=== PATIENT | male | born 1940 | race Caucasian/White ===

== ENCOUNTER 2019-05-30 13:40 | Emergency (ER) | payer MEDICARE, OTHER ==
[2019-05-30] MEDS ORDERED: ONDANSETRON ODT 4 MG TABLET TL STA (16:05)
[2019-05-30] MEDS ORDERED: LORazepam 0.5 MG TABLET PO STA (16:05)
[2019-05-30 16:06] VITALS: BP 186/86
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
[2019-05-30 16:36] LABS: BASOPHILS # (AUTO) 0.1 10^3/uL (0.0-0.1); BASOPHILS % (AUTO) 0.8 %; EOSINOPHILS # (AUTO) 0.2 10^3/uL (0.0-0.7); EOSINOPHILS % (AUTO) 2.9 %; HGB - HEMOGLOBIN 15.6 g/dL (14.0-18.0); LYMPHOCYTES # (AUTO) 2.2 10^3/uL (1.5-3.5); LYMPHOCYTES % (AUTO) 33.3 %; MEAN CORPUSCULAR HEMOGLOBIN 29.2 pg (27.0-31.0); MEAN CORPUSCULAR HGB CONC 33.7 g/dL (32.0-36.0); MEAN CORPUSCULAR VOLUME 86.7 fL (80.0-94.0); MEAN PLATELET VOLUME 8.9 fL (7.4-11.4); MONOCYTES # (AUTO) 0.5 10^3/uL (0.0-1.0); MONOCYTES % (AUTO) 8.2 %; NEUTROPHILS # (AUTO) 3.6 10^3/uL (1.5-6.6); NEUTROPHILS % (AUTO) 54.3 %; PLT - PLATELET COUNT 236 10^3/uL (130-450); RED BLOOD COUNT 5.34 10^6/uL (4.70-6.10); RED CELL DISTRIBUTION WIDTH 13.6 % (12.0-15.0); WHITE BLOOD COUNT 6.6 x10^3/uL (4.8-10.8)
[2019-05-30 16:42] LABS: PT - PROTHROMBIN TIME 11.5 secs (9.9-12.6)
--- NOTE | 2019-05-30 16:58 | CT Report ---
Reason: dysequilibrium Procedure Date: 05/30/2019 Accession Number: [id number] / [id number] Procedure: CT - HEAD WO CPT Code: FULL RESULT: EXAM: CT HEAD EXAM DATE: 05/30/2019 04:24 PM. CLINICAL HISTORY: Dysequilibrium. COMPARISON: None. TECHNIQUE: Multiaxial CT images were obtained from the foramen magnum to the vertex. Reformats: Sagittal and coronal. IV contrast: None. In accordance with CT protocol optimization, one or more of the following dose reduction techniques were utilized for this exam: automated exposure control, adjustment of mA and/or KV based on patient size, or use of iterative reconstructive technique. FINDINGS: Parenchyma: No intraparenchymal hemorrhage. No evidence of mass, midline shift, or CT findings of acute infarction. Baker-white differentiation is distinct. Moderate chronic microangiopathic white matter changes are evident. Extraaxial Spaces: Normal for age. No subdural or epidural collections identified. Ventricles: The ventricles and cortical sulci are prominent, consistent with age-related tissue loss. Sinuses and orbits: Imaged paranasal sinuses, orbits, and mastoids show no significant abnormality. Bones: No evidence of fracture or calvarial defect. Other: None. IMPRESSION: Generalized age-related cortical atrophic changes without evidence of acute intracranial abnormality. RAD[facility]
[2019-05-30 17:12] LABS: ALBUMIN 4.1 g/dL (3.2-5.5); ALBUMIN/GLOBULIN RATIO 1.3 (1.0-2.2); BILIRUBIN,TOTAL 0.7 mg/dL (0.2-1.0); CALCIUM 9.5 mg/dL (8.5-10.3); CREATININE 0.8 mg/dL (0.6-1.2); TOTAL PROTEIN 7.2 g/dL (6.7-8.2)
== END 2019-05-30 17:15 | disposition home or self-care (01) ==
LOC: ED 13:40
DX: R42 Dizziness and giddiness (principal); H55.09 Other forms of nystagmus; R29.810 Facial weakness; I10 Essential (primary) hypertension; Z87.891 Personal history of nicotine dependence
CPT/HCPCS: 36415; 70450; 80053; 83690; 85025; 85610; 99284; A9270; Q0162

== ENCOUNTER 2019-07-16 10:50 | Outpatient (CLI) | payer MEDICARE, OTHER ==
--- NOTE | 2019-07-16 14:46 | XRAY Report ---
Reason: ORTHOPNEA, R06.01 Procedure Date: 07/16/2019 Accession Number: [id number] / [id number] Procedure: XRS - Chest 2 View X-Ray CPT Code: 52114 Final Report FULL RESULT: EXAM: CHEST RADIOGRAPHY EXAM DATE: 07/16/2019 10:58 AM. CLINICAL HISTORY: Orthopnea. COMPARISON: None. TECHNIQUE: 2 views. FINDINGS: Lungs/Pleura: No focal opacities evident. No pleural effusion. No pneumothorax. Normal volumes. Mediastinum: Heart and mediastinal contours are unremarkable. Other: None. IMPRESSION: Normal 2-view chest radiography. RAD[facility]
[2019-07-16 17:33] LABS: BASOPHILS # (AUTO) 0.1 10^3/uL (0.0-0.1); BASOPHILS % (AUTO) 1.1 %; EOSINOPHILS # (AUTO) 0.1 10^3/uL (0.0-0.7); HGB - HEMOGLOBIN 15.2 g/dL (14.0-18.0); LYMPHOCYTES # (AUTO) 2.2 10^3/uL (1.5-3.5); LYMPHOCYTES % (AUTO) 31.6 %; MEAN CORPUSCULAR HEMOGLOBIN 29.3 pg (27.0-31.0); MEAN CORPUSCULAR VOLUME 88.8 fL (80.0-94.0); MEAN PLATELET VOLUME 10.2 fL (7.4-11.4); MONOCYTES # (AUTO) 0.5 10^3/uL (0.0-1.0); MONOCYTES % (AUTO) 7.6 %; NEUTROPHILS % (AUTO) 57.4 %; PLT - PLATELET COUNT 301 10^3/uL (130-450); RED BLOOD COUNT 5.19 10^6/uL (4.70-6.10); RED CELL DISTRIBUTION WIDTH 13.8 % (12.0-15.0)
[2019-07-16 17:50] LABS: ALBUMIN 4.3 g/dL (3.2-5.5); ALBUMIN/GLOBULIN RATIO 1.4 (1.0-2.2); BILIRUBIN,TOTAL 0.7 mg/dL (0.2-1.0); CALCIUM 9.1 mg/dL (8.5-10.3); CREATININE 0.9 mg/dL (0.6-1.2); TOTAL PROTEIN 7.4 g/dL (6.7-8.2)
== END 2019-07-16 10:51 | disposition home or self-care (01) ==
LOC: DI.S 10:50
PROVIDERS: ATTEND Internal Medicine
DX: R06.01 Orthopnea (principal)
CPT/HCPCS: 36415; 71046; 80053; 84443; 85025

== ENCOUNTER 2019-10-21 16:03 | Emergency (ER) | payer MEDICARE, OTHER ==
[2019-10-21 16:41] LABS: BASOPHILS # (AUTO) 0.1 10^3/uL (0.0-0.1); BASOPHILS % (AUTO) 0.8 %; EOSINOPHILS # (AUTO) 0.2 10^3/uL (0.0-0.7); EOSINOPHILS % (AUTO) 2.2 %; HGB - HEMOGLOBIN 15.1 g/dL (14.0-18.0); LYMPHOCYTES # (AUTO) 2.2 10^3/uL (1.5-3.5); LYMPHOCYTES % (AUTO) 22.2 %; MEAN CORPUSCULAR HEMOGLOBIN 29.5 pg (27.0-31.0); MEAN CORPUSCULAR HGB CONC 33.8 g/dL (32.0-36.0); MEAN CORPUSCULAR VOLUME 87.5 fL (80.0-94.0); MEAN PLATELET VOLUME 8.7 fL (7.4-11.4); MONOCYTES # (AUTO) 0.7 10^3/uL (0.0-1.0); MONOCYTES % (AUTO) 6.6 %; NEUTROPHILS # (AUTO) 6.8 10^3/uL (1.5-6.6); NEUTROPHILS % (AUTO) 67.7 %; PLT - PLATELET COUNT 252 10^3/uL (130-450); RED BLOOD COUNT 5.11 10^6/uL (4.70-6.10); RED CELL DISTRIBUTION WIDTH 13.6 % (12.0-15.0); WHITE BLOOD COUNT 10.1 x10^3/uL (4.8-10.8)
[2019-10-21 16:54] LABS: ALBUMIN 4.1 g/dL (3.2-5.5); ALBUMIN/GLOBULIN RATIO 1.3 (1.0-2.2); BILIRUBIN,TOTAL 0.4 mg/dL (0.2-1.0); CALCIUM 9.3 mg/dL (8.5-10.3); CREATININE 1.1 mg/dL (0.6-1.2); TOTAL PROTEIN 7.3 g/dL (6.7-8.2)
[2019-10-21] MEDS ORDERED: IOVERSOL 320 100 ML VIAL IVP ONE ×2 (18:54→19:17)
--- NOTE | 2019-10-21 18:56 | ED Physician Documentation ---
PD HPI ABD PAIN - Stated complaint Stated Complaint: ABD PX, NAUSEA - Chief complaint Chief Complaint: Abd Pain - History obtained from History obtained from: Patient, Family - History of Present Illness Timing - onset: How many weeks ago (11) Timing - duration: Weeks Timing - details: Gradual onset, Waxing and waning Pain level max: 7 Pain level now: 4 Quality: Aching, Pain Location: Other (down the midline of his abdomen along his surgical scar) Radiation: No: Chest, , Lower back, Left flank, Left shoulder, Right flank, Right shoulder, Upper back Improved by: Other (nothing) Worsened by: Other (nothing) Associated symptoms: Nausea, Diarrhea (intermittent). No: Fever, Vomiting, Hematemesis, Constipation, Melena, Hematochezia, Dysuria, Hematuria, Chest pain Recently seen: Not recently seen - Additional information Additional information: Patient states that he has had diverticulitis in the past. He states that a year ago he had surgery for this down at [facility] in [place]. He states has had abdominal pain for the past week, it is along the midline of his abdomen al garrick his scar. Review of Systems Constitutional: denies: Fever, Chills Cardiac: denies: Chest pain / pressure Respiratory: denies: Cough GI: denies: Hematemesis, Bloody / black stool : denies: Dysuria Skin: denies: Rash Musculoskeletal: denies: Neck pain, Back pain Neurologic: denies: Focal weakness, Numbness, Headache PD PAST MEDICAL HISTORY - Past Medical History Cardiovascular: Hypertension, High cholesterol Respiratory: Asthma Psych: None - Past Surgical History General: Cholecystectomy, Other - Present Medications Home Medications: Ambulatory Orders Medication Instructions Recorded Confirmed LORazepam [Ativan] 0.5 mg PO Q6H PRN #5 tablet 05/30/19 Ondansetron Odt [Zofran] 4 mg TL Q6H PRN #10 tablet 05/30/19 Esomeprazole Magnesium [Nexium] 20 mg PO DAILY #30 capsule. 10/21/19 - Allergies Allergies/Adverse Reactions: Allergies Allergy/AdvReac Type Severity Reaction Status Date / Time No Known Drug Allergies Allergy Verified 10/21/19 16:16 - Social History Does the pt smoke?: No Smoking Status: Former smoker Does the pt drink ETOH?: No Does the pt have substance abuse?: No PD ED PE NORMAL - Vitals Vital signs reviewed: Yes - General General: Alert and oriented X 3, No acute distress - HEENT HEENT: Moist mucous membranes - Neck Neck: Supple, no meningeal sign - Cardiac Cardiac: RRR, Strong equal pulses - Respiratory Respiratory: No respiratory distress, Clear bilaterally - Abdomen Abdomen: Normal bowel sounds, Soft, Non tender, Non distended - Derm Derm: Warm and dry - Extremities Extremities: No edema - Neuro Neuro: Alert and oriented X 3 - Psych Psych: Normal mood, Normal affect Results - Vitals Vitals: Vital Signs - 24 hr 10/21/19 10/21/19 16:16 19:50 Temperature 36.6 C Heart Rate 56 L 54 L Respiratory 14 14 Rate Blood Pressure 130/80 191/84 H O2 Saturation 97 98 Oxygen O2 Source Room air - Labs Labs: Laboratory Tests 10/21/19 10/21/19 10/21/19 16:36 16:36 20:25 WBC 10.1 RBC 5.11 Hgb 15.1 Hct 44.7 MCV 87.5 MCH 29.5 MCHC 33.8 RDW 13.6 Plt Count 252 MPV 8.7 Neut # (Auto) 6.8 H Lymph # (Auto) 2.2 [place] # (Auto) 0.7 Eos # (Auto) 0.2 Baso # (Auto) 0.1 Absolute Nucleated RBC 0.00 Nucleated RBC % 0.0 Sodium 139 Potassium 4.6 Chloride 102 Carbon Dioxide 26 Anion Gap 11.0 BUN 29 H Creatinine 1.1 Estimated GFR (MDRD) 65 L Glucose 109 H Calcium 9.3 Total Bilirubin 0.4 AST 20 ALT 19 Alkaline Phosphatase 66 Total Protein 7.3 Albumin 4.1 Globulin 3.2 Albumin/Globulin Ratio 1.3 Lipase 36 Urine Color YELLOW Urine Clarity CLEAR Urine pH 7.0 Ur Specific Julian 1.010 Urine Protein NEGATIVE Urine Glucose (UA) NEGATIVE Urine Ketones NEGATIVE Urine Occult Blood TRACE-INTA Urine Nitrite NEGATIVE Urine Bilirubin NEGATIVE Urine Urobilinogen 0.2 (NORMAL) Ur Leukocyte Esterase NEGATIVE Ur Microscopic Review NOT INDICATED Urine Culture Comments NOT INDICATED - Rads (name of study) CT abdomen pelvis Radiology: Prelim report reviewed, EMP read contemporaneously, See rad report (1. Apparent wall thickening with hyperemia of the proximal duodenum could reflect nonspecific duodenitis. Correlation with patient's symptoms recommend it. Endoscopy could be performed for further evaluation. 2. Otherwise no other acute abnormality seen in the abdomen or pelvis. Normal caliber bowel loops. Normal appendix. 3. Sigmoid colonic diverticulosis without evidence for acute Diverticulitis) PD MEDICAL DECISION MAKING - ED course Complexity details: reviewed results, re-evaluated patient, considered differential, d/w patient, d/w family ED course: Patient with what appears to be duodenitis. Will place on a PPI for home. We will have him follow-up with his doctor for likely endoscopy referral with biopsy. Tolerating p.o. without difficulty here. Given IV Protonix. IV fluids given as well. No significant pain in the emergency department. Patient counseled regarding signs and symptoms for which I believe and urgent re- evaluation would be necessary. Patient with good understanding of and agreement to plan and is comfortable going home at this time This document was made in part using voice recognition software. While efforts are made to proofread this document, sound alike and grammatical errors may occur. Departure - Departure Disposition: 01 Home, Self Care Clinical Impression: Duodenitis Condition: Good Instructions: Duodenitis Follow-Up: Haresh Moses MD [Primary Care Provider] - Within 1 week Prescriptions: Esomeprazole Magnesium [Nexium] 20 mg PO DAILY #30 capsule. Comments: Follow-up with your doctor for further care. They should test you for H. pylori. They may also want to schedule an endoscopy where they can perform a biopsy of this site. Discharge Date/Time: 10/21/19 20:37
[2019-10-21] MEDS ORDERED: SODIUM CHLORIDE 0.9% 1,000 ML IV ONE (19:25)
--- NOTE | 2019-10-21 19:33 | CT Report ---
Reason: abd pain, diffuse Procedure Date: 10/21/2019 Accession Number: [id number] / [id number] Procedure: CT - Abdomen/Pelvis W CPT Code: Final Report FULL RESULT: EXAM: CT ABDOMEN AND PELVIS EXAM DATE: 10/21/2019 07:14 PM. CLINICAL HISTORY: Abd pain, diffuse. COMPARISONS: ABDOMEN/PELVIS W/ 09/08/2017 9:38 AM. TECHNIQUE: Routine helical CT imaging was performed through the abdomen and pelvis. IV contrast: 100 cc Optiray 320. Enteric contrast: No. Reconstructions: Coronal and sagittal. In accordance with CT protocol optimization, one or more of the following dose reduction techniques were utilized for this exam: automated exposure control, adjustment of mA and/or KV based on patient size, or use of iterative reconstructive technique. FINDINGS: Lung Bases: Unremarkable. Liver: Normal. No masses. Gallbladder/Bile Ducts: Surgically absent gallbladder. No unexpected biliary dilation. Spleen: Normal. Pancreas: Normal. Adrenal Glands: Normal. Kidneys: No evidence for solid renal masses or hydronephrosis. Bilateral hypoattenuating renal cortical lesions are seen, the larger lesions are compatible with cysts, the smaller subcentimeter lesions are too small to characterize, statistically additional cyst. Focal 1 cm curvilinear calcification of the right renal lower pole could reflect a nonobstructing calculus, unchanged. Peritoneal Cavity/Bowel: Unremarkable stomach. Proximal duodenal wall thickening with mucosal hyperenhancement is evident. Otherwise bowel loops are normal in caliber. Distal duodenal small lipoma evident. Normal appendix. No pneumoperitoneum or ascites. No other intra-abdominal hyperemia. No pathologically enlarged intra-abdominal lymph nodes. Colonic diverticula without evidence for acute inflammation. Pelvic Organs: Unremarkable urinary bladder for degree of distention. Prostate and seminal vesicles are normal. Rectosigmoid colonic staple line appears intact. Vasculature: No aneurysms or other significant abnormality. Bones: Multilevel degenerative disk disease in the spine. No focal suspicious osseous lesions. Other: None. IMPRESSION: 1. Apparent wall thickening with hyperemia of the proximal duodenum could reflect nonspecific duodenitis. Correlation with patient's symptoms recommend it. Endoscopy could be performed for further evaluation. 2. Otherwise no other acute abnormality seen in the abdomen or pelvis. Normal caliber bowel loops. Normal appendix. 3. Sigmoid colonic diverticulosis without evidence for acute diverticulitis. RADIA
[2019-10-21 19:51] VITALS: BP 191/84
[2019-10-21] MEDS ORDERED: PANTOPRAZOLE 40 MG VIAL IVP STA (19:58)
[2019-10-21 20:29] LABS: BILIRUBIN,URINE NEGATIVE (NEGATIVE); GLUCOSE, URINE (UA) NEGATIVE (NEGATIVE); KETONES,URINE (UA) NEGATIVE (NEGATIVE); LEUKOCYTE ESTERASE, URINE NEGATIVE (NEGATIVE); NITRITE,URINE NEGATIVE (NEGATIVE); OCCULT BLOOD,URINE TRACE-INTA (NEGATIVE); PROTEIN,URINE NEGATIVE (NEGATIVE); UROBILINOGEN,URINE 0.2 (NORMAL) E.U./dL (NORMAL)
[2019-10-21 20:30] LABS: CLARITY,URINE CLEAR (CLEAR)
== END 2019-10-21 20:37 | disposition home or self-care (01) ==
LOC: ED 16:03
DX: K29.80 Duodenitis without bleeding (principal); K57.30 Diverticulosis of large intestine without perforation or abscess without bleeding; Z87.891 Personal history of nicotine dependence; Z86.79 Personal history of other diseases of the circulatory system
CPT/HCPCS: 36415; 74177; 80053; 81003; 83690; 85025; 96361; 96374; 99284; Q9967; 81001; 87086

== ENCOUNTER 2020-08-28 15:40 | Emergency (ER) | payer MEDICARE, OTHER ==
--- NOTE | 2020-08-28 16:09 | ED Physician Documentation ---
History of Present Illness - Stated complaint Stated Complaint: UNABLE TO SEE FROM RIGHT EYE - Chief complaint Chief Complaint: Heent - Additonal information Additional information: 80-year-old male presents to the emergency department for evaluation of sudden onset loss of vision in the right eye. Symptoms began at 2 PM. He reports that he was outside uncoiling of garden hose. Suddenly he began to feel like the vision in his right eye was looking through a checkerboard. At this time he has near-total loss of vision in the right eye sparing mild amount of extreme peripheral right sided vision preserved. No pain. No trauma. He does report a history of cataract surgery a 6 months ago at [facility]. Pt reports that for years he has had "tunnel vision" in the right eye. previous to this afternoon his vision would appear as though he is looking through a donut. central vision (hole) is black, the peripheral vision is lost. However the substance of the donut is what he can see in his right eye. With the new events of today he feels like he is looking through a coffee can with holes cute in the bottom. he denies pain, headache, jaw pain Denies CP, SOB,. Headache, diplopia, slurred speech, arm or leg weakness PMH: HTN, hyperlipidemia Meds: unknown name Code stroke initiated at 1610 after hx obtained from pt. Pt was driven to the hospital by his Review of Systems Constitutional: reports: Reviewed and negative Eyes: reports: Loss of vision. denies: Photophobia, Discharge, Irritation Ears: reports: Reviewed and negative Nose: reports: Reviewed and negative Throat: reports: Reviewed and negative Cardiac: reports: Reviewed and negative Respiratory: reports: Reviewed and negative GI: reports: Reviewed and negative : reports: Reviewed and negative Skin: reports: Reviewed and negative Musculoskeletal: reports: Reviewed and negative Neurologic: denies: Generalized weakness, Focal weakness, Difficulty speaking, Near syncope, Syncope, Seizure, Confused, Altered mental status, Unresponsive, Headache, Head injury, LOC PD PAST MEDICAL HISTORY - Past Medical History Cardiovascular: Hypertension, High cholesterol Respiratory: Asthma Psych: None - Past Surgical History General: Cholecystectomy, Other - Present Medications Home Medications: Ambulatory Orders Medication Instructions Recorded Confirmed Aspirin [Aspirin EC] 81 mg PO DAILY #30 tablet 08/28/20 Atorvastatin [Lipitor] 10 mg PO DAILY 08/28/20 08/28/20 Clopidogrel [Plavix] 75 mg PO DAILY #30 tablet 08/28/20 Losartan [Cozaar] 50 mg PO DAILY 08/28/20 08/28/20 - Allergies Allergies/Adverse Reactions: Allergies Allergy/AdvReac Type Severity Reaction Status Date / Time No Known Drug Allergies Allergy Verified 10/21/19 16:16 - Social History Does the pt smoke?: No Smoking Status: Former smoker Does the pt drink ETOH?: No Does the pt have substance abuse?: No PD ED PE EXPANDED - HEENT HEENT: Other - Eyes Eyes: Other (afferent pupillary defect. Limited fundoscopic exam does not reveal obvious rentinal hemorrhage) - Neck Neck: Supple w/out meningeal sx, No tenderness - Cardiac Cardiac: Regular Rate, Radial strong equal, Pedal strong equal, Cap refill < 2 sec. No: Murmur Present - Respiratory Respiratory: Clear to ausultation baldev. No: Distress, Labored - Abdomen Abdomen: Normal Bowel sounds. No: Tender to palpation - Neuro Neuro: Alert and Oriented X 3, CNII-XII intact, Cerebellar nl, Normal gait, Normal finger nose, Normal speech, Other (NIH score of 1 for loss of visual field in right eye only) - GCS Eye Opening: Spontaneous Motor: Obeys Commands Verbal: Oriented Total: 15 Results - Vitals Vitals: Vital Signs - 24 hr 08/28/20 08/28/20 08/28/20 15:43 16:21 16:51 Temperature 35.7 C L Heart Rate 60 67 69 Respiratory 18 18 19 Rate Blood Pressure 174/94 H 163/84 H 171/79 H O2 Saturation 97 99 98 08/28/20 08/28/20 08/28/20 17:00 17:30 18:00 Temperature Heart Rate 80 54 L 61 Respiratory 18 19 16 Rate Blood Pressure 157/98 H 174/75 H 192/98 H O2 Saturation 99 98 99 08/28/20 08/28/20 18:30 19:00 Temperature Heart Rate 64 54 L Respiratory 18 18 Rate Blood Pressure 196/83 H 171/99 H O2 Saturation 98 98 Oxygen O2 Source Room air - EKG (time done) 1633 Rate: Rate (enter#) (60) Rhythm: NSR, Other (ventricular trigeminy) Belle: Normal Intervals: Prolonged FL Ischemia: Normal ST segments - Labs Labs: Laboratory Tests 08/28/20 08/28/20 08/28/20 16:13 16:13 16:13 WBC 6.8 RBC 4.97 Hgb 14.7 Hct 43.1 MCV 86.7 MCH 29.6 MCHC 34.1 RDW 13.2 Plt Count 240 MPV 9.1 Neut # (Auto) 3.9 Lymph # (Auto) 2.2 [place] # (Auto) 0.5 Eos # (Auto) 0.1 Baso # (Auto) 0.1 Absolute Nucleated RBC 0.00 Nucleated RBC % 0.0 ESR PT 11.2 INR 1.0 Sodium 140 Potassium 4.0 Chloride 107 Carbon Dioxide 24 Anion Gap 9.0 BUN 19 Creatinine 0.9 Estimated GFR (MDRD) 81 L Glucose 133 H Calcium 9.1 Total Bilirubin 0.6 AST 22 ALT 22 Alkaline Phosphatase 62 C-Reactive Protein Total Protein 6.7 Albumin 3.9 Globulin 2.8 Albumin/Globulin Ratio 1.4 Lipase 77 H 08/28/20 08/28/20 16:13 16:13 WBC RBC Hgb Hct MCV MCH MCHC RDW Plt Count MPV Neut # (Auto) Lymph # (Auto) [place] # (Auto) Eos # (Auto) Baso # (Auto) Absolute Nucleated RBC Nucleated RBC % ESR 3 PT INR Sodium Potassium Chloride Carbon Dioxide Anion Gap BUN Creatinine Estimated GFR (MDRD) Glucose Calcium Total Bilirubin AST ALT Alkaline Phosphatase C-Reactive Protein 1.1 H Total Protein Albumin Globulin Albumin/Globulin Ratio Lipase - Rads (name of study) CTA head Radiology: Final report received (No significant intracranial arterial abnormalities are seen. 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 The distal left vertebral artery demonstrates reconstitution of flow at the approximate C1 level. 70 to 80% narrowing seen involving the right p roximal internal carotid artery with 50 to 60% narrowing in Left proximal ICA), See rad report PD MEDICAL DECISION MAKING - ED course Complexity details: re-evaluated patient, considered differential, d/w patient ED course: 80-year-old male with past medical history of hypertension presents to the emergency department with sudden onset painless loss of vision in the right eye. He describes uncoiling a garden hose and feeling like he was seeing through a checkerboard pattern and then not having any vision in the right eye sparing minimal extreme right lateral vision. symptoms began at 2 pm. Pt was driven to the hospital. After presentation and evaluation, we initated code stroke protocol at 1610 1635: CTA's completed, but not yet read. I have spoken with Dr. Barros with tele- stroke. In discussion of monocular vision loss in this patient it is very difficult to rule out a peripheral retinal hemorrhage on a limited funduscopic exam completed here in the emergency department. For this reason TPA was excluded in monocular vision loss during the trials. He did state to me that most emergency departments do lack the ability to do proper dilated eye exams to fully rule out retinal hemorrhage. 1650: Dr. Quijano an process development manager has been consulted. He will be arriving to the ER shortly to do a dilated eye exam. Dr. Barros is at this time uncertain if he would offer TPA in the setting of this patient as there is very limited study that it is effective in this setting 1710: Dr. Quijano of opthamology at bedside. CTA of head negative. 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 There is 50 to 60% left proximal ICA occlusion. There is occlusion of the left vertebral artery at its origin. Unknown if acute or chronic. 1800: Dr. Quijano has completed the dilated right eye exam. 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 Dr. Barros of neurologist has spoken with Dr. Quijano. No TPA is recommended at this time. however, given the findings of significant severe stenosis of the ICA's, he would recommend transfer to a facility with vascular surgery/intervention available for further evaluation 1930: Dony spoken on the phone with vascular surgeon Dr. Javier El He is associated with [facility]. In discussion of the case, loss of vision in the right eye and the stenosis in the right carotid artery, he does not feel that he would need to be transferred tonight to have a vascular intervention done this weekend. He feels that starting dual antiplatelet therapy is appropriate and he would like to see the patient in his office Monday morning with a plan to do a vascular intervention later next week. This gentleman was given loading dose of his of aspirin and Plavix here in the emergency department and a prescription was written for him to fill tomorrow morning. I had a lengthy discussion with both the patient and his regarding return precautions for strokelike symptoms. Departure - Departure Disposition: Home, Self Care Clinical Impression: Vision loss of right eye Condition: Stable Record reviewed to determine appropriate education?: Yes Instructions: Blockage Carotid Artery Follow-Up: Javier El MD [Physician No Access] - Within 3 Days Prescriptions: Aspirin [Aspirin EC] 81 mg PO DAILY #30 tablet. Clopidogrel [Plavix] 75 mg PO DAILY #30 tablet Comments: Could you lost vision in your right eye today. It does look like you have ischemia of your optic nerve. This is a form of a stroke. The CAT scan angiograms that we did of your head and neck showed fairly significant occlusion of your proximal internal carotid arteries. In the long-term this does set you up to have more strokes in the future unless further therapy is completed with a vascular surgeon. I would like you to start taking the aspirin and Plavix every day as prescribed. Please call Dr. El's office on Monday to be seen for follow-up. He would like to see you in his office on Monday and plan to do a vascular intervention later next week. He told me on the phone, to have you arrive in his office on Monday morning. If at any point you have slurred speech, facial droop, weakness in your arms or legs, suddenly severe headache please return immediately to the emergency department. It is also important that you contain continue to take your other medications for blood pressure and cholesterol as already directed
[2020-08-28 16:18] LABS: BASOPHILS # (AUTO) 0.1 10^3/uL (0.0-0.1); BASOPHILS % (AUTO) 0.7 %; EOSINOPHILS # (AUTO) 0.1 10^3/uL (0.0-0.7); EOSINOPHILS % (AUTO) 1.6 %; HGB - HEMOGLOBIN 14.7 g/dL (14.0-18.0); LYMPHOCYTES # (AUTO) 2.2 10^3/uL (1.5-3.5); LYMPHOCYTES % (AUTO) 32.7 %; MEAN CORPUSCULAR HEMOGLOBIN 29.6 pg (27.0-31.0); MEAN CORPUSCULAR HGB CONC 34.1 g/dL (32.0-36.0); MEAN CORPUSCULAR VOLUME 86.7 fL (80.0-94.0); MEAN PLATELET VOLUME 9.1 fL (7.4-11.4); MONOCYTES # (AUTO) 0.5 10^3/uL (0.0-1.0); MONOCYTES % (AUTO) 6.8 %; NEUTROPHILS # (AUTO) 3.9 10^3/uL (1.5-6.6); NEUTROPHILS % (AUTO) 57.9 %; PLT - PLATELET COUNT 240 10^3/uL (130-450); RED BLOOD COUNT 4.97 10^6/uL (4.70-6.10); RED CELL DISTRIBUTION WIDTH 13.2 % (12.0-15.0); WHITE BLOOD COUNT 6.8 x10^3/uL (4.8-10.8)
[2020-08-28] MEDS ORDERED: IOVERSOL 320 100 ML VIAL IVP ONE (16:21)
[2020-08-28 16:24] LABS: PT - PROTHROMBIN TIME 11.2 secs (9.9-12.6)
[2020-08-28 16:34] LABS: ALBUMIN 3.9 g/dL (3.2-5.5); ALBUMIN/GLOBULIN RATIO 1.4 (1.0-2.2); BILIRUBIN,TOTAL 0.6 mg/dL (0.2-1.0); CALCIUM 9.1 mg/dL (8.5-10.3); CREATININE 0.9 mg/dL (0.6-1.2); TOTAL PROTEIN 6.7 g/dL (6.7-8.2)
[2020-08-28] MEDS ORDERED: CYCLOPENTOLATE 1% OPHTH DROPS 2 ML RIGHTEYE ONE (16:39)
--- NOTE | 2020-08-28 16:44 | CT Report ---
PROCEDURE: ANGIO HEAD W/WO INDICATIONS: L sided facial droop CONTRAST: IV CONTRAST: Optiray 320 ml: 80 PO CONTRAST: *NO PO CONTRAST TECHNIQUE: Precontrast 4.5 mm thick angled axial sections acquired from the foramen magnum to the vertex. Afte r the administration of intravenous contrast, 1 mm thick sections acquired through the [place] is. Postcontrast 4.5 mm thick sections then re-acquired from the foramen magnum to the vertex. 3-di mensional hjwuxja-sjtaikpqg-tcgghpcmqq (MIP) and/or volume rendering reformats were acquired of the c entral intracranial vasculature. For radiation dose reduction, the following was used: automated ex posure control, adjustment of mA and/or kV according to patient size. COMPARISON: Correlation is made with prior head CT, 05/30/2019. Correlation is also made with the [facility] neck CT angiogram, 08/28/2020. FINDINGS: Image quality: Excellent. Anterior circulation: Intracranial internal carotid arteries are normal in size and flow. The flow within the paired anterior cerebral arteries is normal and symmetric. The flow within the middle cer ebral arteries is normal and symmetric. The anterior communicating artery is not well seen. No aneu rysms are seen. Posterior circulation: Visualized portions of the vertebral arteries demonstrate normal caliber, and join to form a normal appearing basilar artery. Flow within the posterior cerebral arteries is norm al and symmetric. No aneurysms are seen. CSF spaces: Ventricles are normal in size and shape. Basal cisterns are patent. No extra-axial flu id collections. Brain: No midline shift. No intracranial bleeds or masses. Baker-white matter interface appears int act. Skull and face: Calvarium and facial bones appear intact, without suspicious lesions. Sinuses: Visualized sinuses and mastoids are clear. IMPRESSION: No imaging explanation is found for the patient's presenting symptoms. No significant intracranial arterial abnormalities are seen. Reviewed by: Collin Hull MD on 08/28/2020 3:43 PM [place] Approved by: Collin Hull MD on 08/28/2020 3:43 PM [facility] Station ID: [id number]
[2020-08-28] MEDS ORDERED: TROPICAMIDE 1% OPHTH 15 ML DROPS RIGHTEYE ONE (16:45)
--- NOTE | 2020-08-28 16:49 | CT Report ---
PROCEDURE: ANGIO NECK W INDICATIONS: L sided facial droop, L neck pain CONTRAST: IV CONTRAST: Optiray 320 ml: 80 PO CONTRAST: *NO PO CONTRAST TECHNIQUE: After the administration of intravenous contrast, 1.5 mm axial sections acquired from the aortic arch to the Transfer of Romano. Coronal 3-D maximum intensity projection (MIP) and/or volume rendering ref ormats were then performed. For radiation dose reduction, the following was used: automated exposur e control, adjustment of mA and/or kV according to patient size. COMPARISON: Correlation is made with the accompanying head CT, 08/28/2020. FINDINGS: Image quality: Excellent. Carotid system: The great vessels demonstrate a conventional anatomy as they arise from the aortic a rch. The origins of the common carotid arteries appear patent. The common carotid arteries demonstr ate normal calibers and courses. The bifurcation regions demonstrate atherosclerotic irregularity an d calcification. There is relatively prominent soft plaque seen involving the right proximal internal carotid artery, 70-80% narrowing seen. On the left, there is 50-60% narrowing of the left proximal i nternal carotid artery. The more distal internal carotid arteries demonstrate normal course and calib er. Posterior circulation: There is occlusion of the left vertebral artery at its origin. The origin of t he right vertebral artery is within normal limits. The right vertebral artery is unremarkable. The distal left vertebral artery demonstrates taoism of blood flow via collateral circulation, a t the C1 level. The more superior portions of the vertebral arteries demonstrate normal course and ca liber. They join to form a normal appearing basilar artery. Soft tissues: Visualized neck soft tissues demonstrate no suspicious abnormalities. The thyroid gla nd is normal in size. Bones: No suspicious bony lesions. Visualized cervical spine appears normally aligned. Cervical spi ne degenerative changes are seen, with at least moderate disc space narrowing at C3-C4 and C4-C5, wit h moderate to severe disc space narrowing at C5-C6 and C6-C7. Endplate irregularity and sclerosis are seen, which are worst at C5-C6. Focal degenerative change can also be seen involving the C1-C2 inter face anteriorly. 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 The distal left vertebral artery demonstrates r econstitution of flow at the approximate C1 level. The right vertebral artery is unremarkable. 70-80% narrowing seen involving the right proximal internal carotid artery, with 50-60% narrowing inv olving the left proximal internal carotid artery. Cervical spine degenerative changes are seen, which are overall worst at the C5-C6 level. The estimate of stenosis included in the report of the imaging study was calculated using the NASCET method Reviewed by: Collin Hull MD on 08/28/2020 3:47 PM [facility] Approved by: Collin Hull MD on 08/28/2020 3:47 PM [facility] Station ID: [id number]
[2020-08-28 19:32] LABS: C. PNEUMONIAE- RESP PCR PANEL NOT DETECTED
[2020-08-28] MEDS ORDERED: CLOPIDOGREL 300 MG TABLET PO STA (19:34)
[2020-08-28] MEDS ORDERED: ASPIRIN 325 MG TABLET PO STA (19:34)
[2020-08-28 19:59] VITALS: BP 161/82
== END 2020-08-28 19:59 | disposition home or self-care (01) ==
LOC: ED 15:40
DX: H47.011 Ischemic optic neuropathy, right eye (principal); H54.61 Unqualified visual loss, right eye, normal vision left eye; Z20.828 Contact with and (suspected) exposure to other viral communicable diseases; I65.23 Occlusion and stenosis of bilateral carotid arteries; I65.02 Occlusion and stenosis of left vertebral artery; R00.8 Other abnormalities of heart beat; I10 Essential (primary) hypertension; E78.5 Hyperlipidemia, unspecified; Z87.891 Personal history of nicotine dependence
CPT/HCPCS: 36415; 70496; 70498; 80053; 83690; 85025; 85610; 85651; 86140; 87631; 93005; 99284; A9270; Q9967; 0202U

== ENCOUNTER 2021-04-21 09:38 | Outpatient (CLI) | payer MEDICARE, OTHER | END 2021-04-21 23:59 | disposition home or self-care (01) | LOC: LAB.S 09:38 | PROVIDERS: ATTEND Emergency Medicine | DX: R07.0 Pain in throat (principal) | CPT/HCPCS: 87070 ==

== ENCOUNTER 2023-02-01 07:26 | Outpatient (CLI) | payer MEDICARE, OTHER ==
[2023-02-01 14:31] LABS: BASOPHILS # (AUTO) 0.1 10^3/uL (0.0-0.1); BASOPHILS % (AUTO) 1.3 %; EOSINOPHILS # (AUTO) 0.2 10^3/uL (0.0-0.7); EOSINOPHILS % (AUTO) 2.9 %; HCT - HEMATOCRIT 49.1 % (42.0-52.0); HGB - HEMOGLOBIN 15.4 g/dL (14.0-18.0); LYMPHOCYTES # (AUTO) 2.3 10^3/uL (1.5-3.5); LYMPHOCYTES % (AUTO) 33.8 %; MEAN CORPUSCULAR HEMOGLOBIN 29.1 pg (27.0-31.0); MEAN CORPUSCULAR HGB CONC 31.4 g/dL (32.0-36.0); MEAN CORPUSCULAR VOLUME 92.8 fL (80.0-94.0); MEAN PLATELET VOLUME 10.9 fL (7.4-11.4); MONOCYTES # (AUTO) 0.5 10^3/uL (0.0-1.0); MONOCYTES % (AUTO) 7.8 %; NEUTROPHILS # (AUTO) 3.7 10^3/uL (1.5-6.6); NEUTROPHILS % (AUTO) 53.8 %; PLT - PLATELET COUNT 270 10^3/uL (130-450); RED BLOOD COUNT 5.29 10^6/uL (4.70-6.10); RED CELL DISTRIBUTION WIDTH 14.1 % (12.0-15.0); WHITE BLOOD COUNT 6.8 x10^3/uL (4.8-10.8)
[2023-02-01 15:18] LABS: ALBUMIN 3.9 g/dL (3.2-5.5); ALBUMIN/GLOBULIN RATIO 1.3 (1.0-2.2); ALKALINE PHOSPHATASE 65 IU/L (42-121); ALT ALANINE AMINOTRANSFERASE 20 IU/L (10-60); AST ASPARTATE AMINOTRANSFERASE 22 IU/L (10-42); BILIRUBIN,TOTAL 0.9 mg/dL (0.2-1.0); BUN - BLOOD UREA NITROGEN 23 mg/dL (6-20); CALCIUM 9.1 mg/dL (8.5-10.3); CARBON DIOXIDE - CO2 28 mmol/L (21-32); CHLORIDE 107 mmol/L (101-111); CHOL/HDL RATIO 3.3 (<5.0); CHOLESTEROL 199 mg/dL; GFR - MDRD 72 (>89); GLUCOSE 111 mg/dL (70-100); HDL CHOLESTEROL 61 mg/dL; LDL CHOLESTEROL,CALCULATED 117 mg/dL; LDL/HDL RATIO 1.9 (<3.6); POTASSIUM 4.3 mmol/L (3.5-5.0); SODIUM 140 mmol/L (135-145); TRIGLYCERIDES 105 mg/dL; VLDL CHOLESTEROL 21 mg/dL
[2023-02-01 15:49] LABS: THYROID STIMULATING HORMONE 1.66 uIU/mL (0.34-5.60)
== END 2023-02-01 07:27 | disposition home or self-care (01) ==
LOC: LAB.S 07:26
PROVIDERS: ATTEND Internal Medicine
DX: I99.9 Unspecified disorder of circulatory system (principal); Z79.899 Other long term (current) drug therapy; R53.83 Other fatigue; R73.01 Impaired fasting glucose
CPT/HCPCS: 36415; 80053; 80061; 82607; 83036; 83721; 83880; 84443; 85025

== ENCOUNTER 2023-02-06 11:24 | Outpatient (CLI) | payer MEDICARE, OTHER ==
[2023-02-06 15:14] LABS: ESTIMATED AVERAGE GLUCOSE 111 mg/dL (70-100); HEMOGLOBIN A1c% 5.5 % (4.27-6.07)
== END 2023-02-06 11:25 | disposition home or self-care (01) ==
LOC: LAB.S 11:24
PROVIDERS: ATTEND Internal Medicine
DX: R73.01 Impaired fasting glucose (principal)
CPT/HCPCS: 36415; 83036

== ENCOUNTER 2023-10-05 12:15 | Outpatient (CLI) | payer MEDICARE, OTHER | END 2023-10-05 12:16 | disposition home or self-care (01) | LOC: DI 12:15 | PROVIDERS: ATTEND Internal Medicine | DX: I99.9 Unspecified disorder of circulatory system (principal); R53.83 Other fatigue; R06.01 Orthopnea; J44.9 Chronic obstructive pulmonary disease, unspecified; I35.8 Other nonrheumatic aortic valve disorders; I11.9 Hypertensive heart disease without heart failure | CPT/HCPCS: 93307 ==

== ENCOUNTER 2024-04-24 07:48 | Outpatient (CLI) | payer MEDICARE, OTHER ==
[2024-04-24 13:58] LABS: BASOPHILS # (AUTO) 0.1 10^3/uL (0.0-0.1); BASOPHILS % (AUTO) 0.8 %; EOSINOPHILS # (AUTO) 0.2 10^3/uL (0.0-0.7); EOSINOPHILS % (AUTO) 1.9 %; HCT - HEMATOCRIT 45.3 % (42.0-52.0); HGB - HEMOGLOBIN 14.9 g/dL (14.0-18.0); LYMPHOCYTES # (AUTO) 2.3 10^3/uL (1.5-3.5); LYMPHOCYTES % (AUTO) 27.6 %; MEAN CORPUSCULAR HGB CONC 32.9 g/dL (32.0-36.0); MEAN CORPUSCULAR VOLUME 88.1 fL (80.0-94.0); MEAN PLATELET VOLUME 9.6 fL (7.4-11.4); MONOCYTES # (AUTO) 0.6 10^3/uL (0.0-1.0); MONOCYTES % (AUTO) 6.8 %; NEUTROPHILS # (AUTO) 5.2 10^3/uL (1.5-6.6); NEUTROPHILS % (AUTO) 62.8 %; PLT - PLATELET COUNT 285 10^3/uL (130-450); RED BLOOD COUNT 5.14 10^6/uL (4.70-6.10); RED CELL DISTRIBUTION WIDTH 13.7 % (12.0-15.0); WHITE BLOOD COUNT 8.3 x10^3/uL (4.8-10.8)
[2024-04-24 14:04] LABS: ALBUMIN/GLOBULIN RATIO 1.4 (1.0-2.2); ALKALINE PHOSPHATASE 67 IU/L (42-121); ALT ALANINE AMINOTRANSFERASE 25 IU/L (10-60); AST ASPARTATE AMINOTRANSFERASE 23 IU/L (10-42); BILIRUBIN,TOTAL 0.9 mg/dL (0.2-1.0); BUN - BLOOD UREA NITROGEN 26 mg/dL (6-20); CALCIUM 9.1 mg/dL (8.5-10.3); CARBON DIOXIDE - CO2 27 mmol/L (21-32); CHLORIDE 106 mmol/L (101-111); CHOL/HDL RATIO 2.4 (<5.0); CHOLESTEROL 159 mg/dL; CREATININE 0.9 mg/dL (0.6-1.3); GFR - MDRD 81 (>89); GLUCOSE 104 mg/dL (74-104); HDL CHOLESTEROL 67 mg/dL; LDL CHOLESTEROL,CALCULATED 72 mg/dL; LDL/HDL RATIO 1.1 (<3.6); POTASSIUM 4.3 mmol/L (3.5-4.5); SODIUM 137 mmol/L (135-145); TOTAL PROTEIN 6.8 g/dL (6.4-8.9); TRIGLYCERIDES 101 mg/dL; VLDL CHOLESTEROL 20 mg/dL
== END 2024-04-24 07:49 | disposition home or self-care (01) ==
LOC: LAB.S 07:48
PROVIDERS: ATTEND Internal Medicine
DX: Z00.00 Encounter for general adult medical examination without abnormal findings (principal); I99.9 Unspecified disorder of circulatory system; I10 Essential (primary) hypertension; J44.9 Chronic obstructive pulmonary disease, unspecified; R53.83 Other fatigue; E78.5 Hyperlipidemia, unspecified
CPT/HCPCS: 36415; 80053; 80061; 83036; 83721; 84153; 85025

== ENCOUNTER 2024-05-10 14:09 | Emergency (ER) | payer MEDICARE, OTHER ==
[2024-05-10 15:01] LABS: BASOPHILS # (AUTO) 0.1 10^3/uL (0.0-0.1); BASOPHILS % (AUTO) 0.8 %; EOSINOPHILS # (AUTO) 0.1 10^3/uL (0.0-0.7); EOSINOPHILS % (AUTO) 1.8 %; HCT - HEMATOCRIT 42.5 % (42.0-52.0); HGB - HEMOGLOBIN 14.1 g/dL (14.0-18.0); LYMPHOCYTES # (AUTO) 2.4 10^3/uL (1.5-3.5); LYMPHOCYTES % (AUTO) 33.4 %; MEAN CORPUSCULAR HEMOGLOBIN 29.1 pg (27.0-31.0); MEAN CORPUSCULAR HGB CONC 33.2 g/dL (32.0-36.0); MEAN CORPUSCULAR VOLUME 87.6 fL (80.0-94.0); MONOCYTES # (AUTO) 0.4 10^3/uL (0.0-1.0); MONOCYTES % (AUTO) 5.9 %; NEUTROPHILS # (AUTO) 4.2 10^3/uL (1.5-6.6); NEUTROPHILS % (AUTO) 57.8 %; PLT - PLATELET COUNT 218 10^3/uL (130-450); RED BLOOD COUNT 4.85 10^6/uL (4.70-6.10); RED CELL DISTRIBUTION WIDTH 13.9 % (12.0-15.0); WHITE BLOOD COUNT 7.3 x10^3/uL (4.8-10.8)
[2024-05-10 15:27] LABS: ALBUMIN/GLOBULIN RATIO 1.7 (1.0-2.2); BILIRUBIN,TOTAL 0.5 mg/dL (0.2-1.0); CALCIUM 9.5 mg/dL (8.5-10.3); CREATININE 1.1 mg/dL (0.6-1.3); POTASSIUM 4.2 mmol/L (3.5-4.5); TOTAL PROTEIN 6.4 g/dL (6.4-8.9)
--- NOTE | 2024-05-10 15:51 | ED Physician Documentation ---
History of Present Illness - Stated complaint Stated Complaint: LOWER BACK PX - Chief complaint Chief Complaint: Abd Pain - Additonal information Additional information: Patient is an 83-year-old male presenting to the emergency department with left flank pain. Patient symptoms started suddenly earlier this afternoon. He notes severe pain with nausea symptoms but no vomiting. Symptoms occurred around 130 this afternoon while he was walking. Patient notes he has been in such severe pain he has been unable to walk since then. He denies any fevers or chills. He notes a history of diverticulitis with bowel reanastomosis but no other abdominal surgeries. He denies any history of nephrolithiasis. He notes pain radiates to his left testicle. He denies any history of difficulty urinating but has been unable to urinate since symptoms started.Patient denies any significant past medical history other than hypertension, history of stroke is on aspirin and losartan daily. PD PAST MEDICAL HISTORY - Past Medical History Past Medical History: Yes Cardiovascular: Hypertension, High cholesterol Respiratory: Asthma Psych: None - Past Surgical History General: Cholecystectomy, Other - Present Medications Home Medications: Ambulatory Orders Medication Instructions Recorded Confirmed Aspirin [Aspirin EC] 81 mg PO DAILY #30 tablet. 08/28/20 Atorvastatin [Lipitor] 10 mg PO DAILY 08/28/20 08/28/20 Clopidogrel [Plavix] 75 mg PO DAILY #30 tablet 08/28/20 Losartan [Cozaar] 50 mg PO DAILY 08/28/20 08/28/20 HYDROcod/ACETAM 5/325 [[place] 5/325] 1 - 2 tab PO Q6H PRN #15 tablet 05/10/24 - Allergies Allergies/Adverse Reactions: Allergies Allergy/AdvReac Type Severity Reaction Status Date / Time No Known Drug Allergies Allergy Verified 05/10/24 14:40 - Social History Does the pt smoke?: No Smoking Status: Never smoker Does the pt drink ETOH?: No Does the pt have substance abuse?: No PD ED PE NORMAL - Vitals Vital signs reviewed: Yes - General General: Alert and oriented X 3 - HEENT HEENT: Atraumatic - Neck Neck: Supple, no meningeal sign - Cardiac Cardiac: RRR, No murmur, No gallop, No rub - Respiratory Respiratory: No respiratory distress, Clear bilaterally - Abdomen Abdomen: Normal bowel sounds, Soft, Other (Reproducible tenderness in left lower quadrant on examination with left CVA tenderness. No pain on examination no left testicle pain negative Prehn sign. No obvious swelling or hydrocele.) - Derm Derm: No rash - Extremities Extremities: No deformity - Neuro Neuro: Alert and oriented X 3 Eye Opening: Spontaneous Motor: Obeys Commands Verbal: Oriented GCS Score: 15 Results - Vitals Vitals: Vital Signs - 24 hr 05/10/24 05/10/24 05/10/24 14:37 16:28 18:00 Temperature 36.0 C L Heart Rate 56 L 58 L 115 H Respiratory 20 17 20 Rate Blood Pressure 123/70 152/75 H 149/79 H O2 Saturation 97 93 96 05/10/24 19:17 Temperature Heart Rate 54 L Respiratory 18 Rate Blood Pressure 135/71 H O2 Saturation 95 Oxygen O2 Source Room air - Labs Labs: Laboratory Tests 05/10/24 05/10/24 05/10/24 14:55 14:55 18:20 WBC 7.3 RBC 4.85 Hgb 14.1 Hct 42.5 MCV 87.6 MCH 29.1 MCHC 33.2 RDW 13.9 Plt Count 218 MPV 9.0 Neut # (Auto) 4.2 Lymph # (Auto) 2.4 [place] # (Auto) 0.4 Eos # (Auto) 0.1 Baso # (Auto) 0.1 Absolute Nucleated RBC 0.00 Nucleated RBC % 0.0 Sodium 139 Potassium 4.2 Chloride 107 Carbon Dioxide 25 Anion Gap 7.0 BUN 23 H Creatinine 1.1 Estimated GFR (MDRD) 64 L Glucose 174 H Calcium 9.5 Total Bilirubin 0.5 AST 20 ALT 20 Alkaline Phosphatase 65 Total Protein 6.4 Albumin 4.0 Globulin 2.4 Albumin/Globulin Ratio 1.7 Lipase 19 Urine Color YELLOW Urine Clarity CLEAR Urine pH 6.0 Ur Specific [place] >=1.030 H Urine Protein NEGATIVE Urine Glucose (UA) NEGATIVE Urine Ketones NEGATIVE Urine Occult Blood TRACE-INTA Urine Nitrite NEGATIVE Urine Bilirubin NEGATIVE Urine Urobilinogen 0.2 (NORMAL) Ur Leukocyte Esterase NEGATIVE Ur Microscopic Review NOT INDICATED Urine Culture Comments NOT INDICATED PD Medical Decision Making - ED course Complexity details: reviewed old records, reviewed results, re-evaluated patient ED course: Patient is an 83-year-old male presents to the emergency department with left flank pain symptoms started shortly prior to arrival. He denies any fevers or chills symptoms started around 1330. He notes pain radiates from his left lower quadrant to left flank and left testicle. No history of nephrolithiasis he has been unable to urinate since this occurred. Patient pain resolved here in the emergency department after small dose of Toradol. CT scan of the abdomen shows 4 mm left stone with mild left hydronephrosis. Patient's urine sample here shows no significant UTI. Creatinine level is stable at 1.1 baseline closer to 0.9. Patient's pain under control no nausea or vomiting here in the ED. Vitals stable on exam. Discussed with patient reassuring labs and CT imaging here in the emergency department. Patient will be discharged home and given follow-up for urology in the outpatient setting.Patient instructed to return with any worsening pain nausea vomiting difficulty urinating or any other new or worsening symptoms. Patient given small dose of [place] he does have tramadol prescription at home instructed him not to take medications at the same time high risk for interactions. Patient understands and is agreeable with this plan. Departure - Departure Disposition: 01 Home, Self Care Clinical Impression: Left renal stone, Hydronephrosis, left Condition: Good Prescriptions: HYDROcod/ACETAM 5/325 [[place] 5/325] 1 - 2 tab PO Q6H PRN #15 tablet PRN Reason: Pain Comments: You were seen here in the ED for your left kidney pain. Your workup here in the emergency department showed a kidney stone 4 mm have given you the number for follow-up for urology. Continue to take the Flomax at home as prescribed and I have given you pain medication for your symptoms. You Should not combine these with your tramadol as you have high risk of interactions causing sedation. Return with any new or worsening symptoms. Please follow-up with your PCP and urology as instructed. I am prescribing a short course of narcotic pain medication for you. These are potentially dangerous and addictive medications that should be used carefully. These medications may constipate you. Take an ctrg-qss-icxwkpp stool softener (docusate) twice daily with plenty of water while taking these medications. If you go 24 hours without a bowel movement, take dhub-xta-ivhvluo miralax, per package instructions. Do not drink or drive while taking these medications. If you received narcotic or sedating medications while in the emergency department, do not drive for 24 hours. Store this medication in a safe, secure place and out of reach of children. It is a violation of federal law to give or sell this medication to another person or to use in a manner other than prescribed. The ED will not refill narcotic prescriptions, including prescriptions lost or stolen. To dispose of unwanted medications: 1. [facility] provides a drop box for medication in pill form only (no liquids) 8:00 am to 4:30 p.m. Monday-Monday in the lobby of the [facility] [place], [address] [place] [address]. Empty pills into ziplock bag before disposal. Call [phone] for information. 2.[employer] is a free service available to all [facility] residents. Go to [email or web address]/ Note that many narcotic pain relievers also contain Tylenol/acetaminophen. Please ensure that your total dose of acetaminophen from all sources does not exceed 3 g (3000 mg) per day. Forms: PCP List
--- NOTE | 2024-05-10 17:30 | CT Report ---
PROCEDURE: Abdomen/Pelvis WO INDICATIONS: evaluate for kidney stone TECHNIQUE: A CT scan of the abdomen and pelvis was performed without the use of intravenous contrast. Images we re recorded and evaluated at appropriate window settings. Reformats: coronal and sagittal. For radiat ion dose reduction, the following was used: automated exposure control, adjustment of mA and/or kV ac cording to patient size. COMPARISON: CT abdomen pelvis 10/21/2019 FINDINGS: Image quality: Diagnostic. Lower chest: Unremarkable. Liver: No contour-deforming mass. Gallbladder: Removed. Biliary tree: No intrahepatic or extrahepatic dilation, accounting for age. Spleen: No splenomegaly. Pancreas: No pancreatic ductal dilation. Adrenals: No adrenal nodule. Kidneys and ureters: Simple bilateral renal cysts. Bilateral perinephric stranding is present, left g reater than right. There is mild left hydronephrosis and hydroureter. 4 mm proximal/mid ureteral calc ulus is present. Linear nonobstructing 7 mm calculus is present on the right. Stomach, bowel and peritoneum: No gastric or small bowel dilation. No abnormal wall thickening. No pa thologic free fluid. Diverticula. Lymph nodes: No central or retroperitoneal adenopathy. Vessels: No infrarenal aortic aneurysm. Reproductive organs: Unremarkable. Bladder: Bladder wall thickness is normal, accounting for underdistention. No calcified bladder stone s. Pelvic lymph nodes: No adenopathy by size criteria. Bones: No aggressive osseous abnormality. Other: Bilateral fat-containing inguinal hernias. IMPRESSION: Mild left hydronephrosis and hydroureter secondary to 4 mm proximal/mid ureteral calculus. Diverticulosis. Reviewed by: Stacy Dietrich MD on 05/10/2024 5:29 PM PDT Approved by: Stacy Dietrich MD on 05/10/2024 5:29 PM PDT Station ID: [id number]
[2024-05-10] MEDS: KETOROLAC 30 MG/ML VIAL IVP STA (17:32)
[2024-05-10 18:32] LABS: BILIRUBIN,URINE NEGATIVE (NEGATIVE); GLUCOSE, URINE (UA) NEGATIVE (NEGATIVE); KETONES,URINE (UA) NEGATIVE (NEGATIVE); LEUKOCYTE ESTERASE, URINE NEGATIVE (NEGATIVE); NITRITE,URINE NEGATIVE (NEGATIVE); OCCULT BLOOD,URINE TRACE-INTA (NEGATIVE); PROTEIN,URINE NEGATIVE (NEGATIVE); UROBILINOGEN,URINE 0.2 (NORMAL) E.U./dL (NORMAL)
[2024-05-10 18:37] LABS: CLARITY,URINE CLEAR (CLEAR)
[2024-05-10 19:43] VITALS: BP 130/70; O2SAT 96
== END 2024-05-10 19:40 | disposition home or self-care (01) ==
LOC: ED 14:09
DX: N13.2 Hydronephrosis with renal and ureteral calculous obstruction (principal); I10 Essential (primary) hypertension; E78.00 Pure hypercholesterolemia, unspecified; Z79.82 Long term (current) use of aspirin; Z79.899 Other long term (current) drug therapy; Z79.02 Long term (current) use of antithrombotics/antiplatelets
CPT/HCPCS: 36415; 80053; 81001; 81003; 83690; 85025; 87086; 96374; 99284

== ENCOUNTER 2024-05-20 06:57 | Day surgery (SDC) | payer MEDICARE, OTHER ==
[~2024-05-20 06:57] MED LIST: ceFAZolin 2 GM VIAL ONE
[2024-05-20] MEDS: LACTATED RINGERS 1,000 ML IV ONE (07:03)
--- NOTE | 2024-05-20 07:39 | ANESTHESIA ---
Pre-Anesthesia VS, & Labs - Diagnosis L ureteral stone - Procedure Cystoscopy, L ureteroscopy, laser lithotripsy Vital Signs: Temp Pulse Resp BP Pulse Ox O2 Flow Rate 36.1 C L 58 L 12 157/90 H 97 05/20/24 07:04 05/20/24 07:04 05/20/24 07:04 05/20/24 07:04 05/20/24 07:04 Height: 5 ft 8 in Weight (kg): 91.7 kg Body Mass Index: 30.7 BMI Classification: Obese - NPO >8 hours - Lab Results Lab results reviewed: Yes Home Medications and Allergies Home Medications: Ambulatory Orders Albuterol Sulf [Ventolin Hfa Inhaler] 1 - 2 puffs INH Q4HR PRN 05/16/24 Amlodipine Besylate [Norvasc] 2.5 mg PO BID 05/16/24 Budesonide/Formoterol Fumarate [Symbicort 80-4.5 Mcg Inhaler] 2 puffs IH BID 05/16/24 Cholecalciferol (Vitamin D3) [Vitamin D3] 5,000 unit PO DAILY 05/16/24 Cyanocobalamin (Vitamin B-12) [Vitamin B-12] 1,000 mcg PO DAILY 05/16/24 Docusate Sodium [Stool Softener] 250 mg PO DAILY 05/16/24 Montelukast [Singulair] 10 mg PO QPM PRN 05/16/24 Multivitamin 1 each PO DAILY 05/16/24 Omeprazole 20 mg PO DAILY 05/16/24 Tamsulosin [Flomax] 0.4 mg PO DAILY 05/16/24 traMADol [Ultram] 50 mg PO DAILY PRN 05/16/24 Atorvastatin [Lipitor] 40 mg PO DAILY 08/28/20 Losartan [Cozaar] 12.5 mg PO BID 08/28/20 Albuterol Sulf [Ventolin Hfa Inhaler] 1 - 2 puffs INH Q4HR PRN 05/16/24 Amlodipine Besylate [Norvasc] 2.5 mg PO BID 05/16/24 Budesonide/Formoterol Fumarate [Symbicort 80-4.5 Mcg Inhaler] 2 puffs IH BID 05/16/24 Cholecalciferol (Vitamin D3) [Vitamin D3] 5,000 unit PO DAILY 05/16/24 Cyanocobalamin (Vitamin B-12) [Vitamin B-12] 1,000 mcg PO DAILY 05/16/24 Docusate Sodium [Stool Softener] 250 mg PO DAILY 05/16/24 Montelukast [Singulair] 10 mg PO QPM PRN 05/16/24 Multivitamin 1 each PO DAILY 05/16/24 Omeprazole 20 mg PO DAILY 05/16/24 Tamsulosin [Flomax] 0.4 mg PO DAILY 05/16/24 traMADol [Ultram] 50 mg PO DAILY PRN 05/16/24 Allergies/Adverse Reactions: Allergies Allergy/AdvReac Type Severity Reaction Status Date / Time No Known Drug Allergies Allergy Verified 05/10/24 14:40 Anes History & Medical History - Anesthetic History Anesthesia Complications: reports: No previous complications Family history of Anesthesia Complications: Denies Family history of Malignant Hyperthermia: Denies - Medical History Cardiovascular: reports: Hypertension, High cholesterol Pulmonary: reports: Asthma, COPD, Sleep apnea Gastrointestinal: reports: GERD, Hemorrhoids, Diverticulitis Urinary: reports: Nocturia, Kidney stones Musculoskeletal: reports: Osteoarthritis Endocrine/Autoimmune: reports: None Skin: reports: None Smoking Status: Never smoker - Surgical History General: reports: Cholecystectomy, Bowel surgery, Colonoscopy, Other Eyes Ears Nose Throat (EENT): reports: Cataracts Cardiothoracic: reports: Other (carotid stent) Exam General: Alert, Oriented x3, Cooperative Dental: Other (no teeth) Neck Mobility: Normal Mallampati classification: II Thyromental Distance: 4-6 cm Respiratory: Lungs clear, Normal breath sounds, No respiratory distress, Decreased breath sounds Cardiovascular: Regular rate Neurological: Normal speech Mental/Cognitive Status: Alert/Oriented X3, Normal for patient Cognitive Status: Within normal limits Plan Anesthesia Type: General Consent for Procedure(s) Verified and Reviewed: Yes Code Status: Attempt Resuscitation ASA classification: 3-Severe systemic disease Is this case an emergency?: No
[2024-05-20] MEDS ORDERED: ePHEDrine 50 MG/ML VIAL IVP PRN (07:45)
[2024-05-20] MEDS ORDERED: MORPHINE 2 MG/ML CARPUJECT IVP PRN (07:45)
[2024-05-20] MEDS ORDERED: ONDANSETRON 4 MG/2 ML VIAL IVP PRN ×2 (07:45→08:49)
[2024-05-20] MEDS ORDERED: ATROPINE ABBOJECT 1 MG/10 ML SYRINGE IVP PRN (07:45)
[2024-05-20] MEDS ORDERED: HYDROmorphone 0.5 MG/0.5 ML SYRINGE IVP PRN (07:45)
[2024-05-20] MEDS ORDERED: fentaNYL 100 MCG/2 ML VIAL IVP PRN (07:45)
[2024-05-20] MEDS ORDERED: METOCLOPRAMIDE 10 MG/2 ML VIAL IVP PRN (07:45)
[2024-05-20] MEDS ORDERED: NALOXONE 0.4 MG/ML VIAL IVP PRN (07:45)
[2024-05-20] MEDS ORDERED: iohexoL-240 10 ML VIAL IVP ONE (07:46)
[2024-05-20] MEDS ORDERED: LIDOCAINE 2% URO-JET 5 ML SYRINGE UR ONE (07:46)
[2024-05-20] MEDS ORDERED: LACTATED RINGERS 1,000 ML IV SCH (08:00)
[2024-05-20] MEDS ORDERED: PROPOFOL 200 MG/20 ML VIAL IVP ONE (08:11)
[2024-05-20] MEDS ORDERED: LIDOCAINE-PF 2% 10 ML AMP SUBQ ONE (08:11)
[2024-05-20] MEDS ORDERED: fentaNYL 100 MCG/2 ML VIAL ONE (08:11)
[2024-05-20] MEDS: LIDOCAINE 2% URO-JET 5 ML SYRINGE UR ONE (08:30)
[2024-05-20] MEDS: LACTATED RINGERS 800 ML IV ONE ×2 (08:44→09:03)
[2024-05-20] MEDS ORDERED: HYDROcod/ACETAM 5/325 MG TABLET PO PRN (08:49)
[2024-05-20 09:03] VITALS: O2SAT 98
[2024-05-20 09:26] VITALS: BP 143/76
--- NOTE | 2024-05-20 10:10 | ANESTHESIA POST OP EVALUATION ---
Anesthesia Post Eval - Post Anesthesia Eval Vitals: Last Vital Signs Temp 35.9 C L 05/20/24 09:11 Pulse 49 L 05/20/24 09:20 Resp 16 05/20/24 09:20 BP 143/76 H 05/20/24 09:20 Pulse Ox 98 05/20/24 09:20 O2 Flow Rate CV Function Including HR & BP: Stable Pain Control: Satisfactory Nausea & Vomiting: Negative Mental Status: Baseline Respiratory Status: Airway Patent Hydration Status: Satisfactory Anesthesia Complications: None
--- NOTE | 2024-05-20 11:35 | XRAY Report ---
PROCEDURE: OR C-Arm Procedure INDICATIONS: CYSTO, LEFT URETEROSCOPY, LASER LITHOTRIPSY FLUORO TIME: 0.1 min TECHNIQUE: Fluoroscopic images submitted for review COMPARISON: None. FINDINGS and IMPRESSION: Fluoroscopic guidance for a left nephroureteral stent placement. Reviewed by: Jonas Laguna MD on 05/20/2024 11:33 AM PDT Approved by: Jonas Laguna MD on 05/20/2024 11:33 AM PDT Station ID: [id number]
--- NOTE | 2024-05-23 13:03 | OPERATIVE REPORT ---
Operative Report - General Procedure Date: 05/20/24 Planned Procedure: Cystoscopy, left ureteroscopy, laser lithotripsy, stent Pre-Op Diagnosis: left ureteral stone Procedure Performed: Cystoscopy, left ureteroscopy, laser lithotripsy, stent Post Op Diagnosis: left ureteral stone - Procedure Note Primary Surgeon: Alonzo Anesthesia Provider: BAHMAN Anesthesia Technique: General LMA Findings: left ureteral stone - Other Other Information/Narrative: I performed consent obtained patient brought to the OR in supine position. The patient was anesthetized per anesthesia protocols and prepped draped in usual sterile fashion in the dorsal bite addition. A formal timeout was performed reconfirming the patient, procedure and laterality. 20 [place] scope was advanced easily into urinary bladder. Bladder was inspected in full, no masses, lesions or other concerns were seen. A sensor wire was placed up the left ureteral orifice up into the kidney under fluoroscopic guidance. A flexible ureteroscope was advanced next the wire up into the proximal ureter where a stone was seen. Using a 200 m laser fiber we dusted the stone to small pieces. The ureter was cleared under direct visualization A 6 [place] 26 cm stent was placed with good curling noted in the kidney and good curling of the bladder. The bladder was emptied and Uro-Jet was placed. The stent was left on a string He will remove the stent in 3 days and I will see him back in a few months
[2024-05-28 13:12] LABS: CALCIUM OXALATE DIHYDRATE 50 % (.); CALCIUM OXALATE MONOHYDRATE 50 % (.); STONE COLOR Tan (.); STONE SIZE 5x3 mm (.); STONE WEIGHT 18 mg (.)
== END 2024-05-20 06:58 | disposition home or self-care (01) ==
LOC: SDS 06:57
PROVIDERS: ATTEND Urology
DX: N20.1 Calculus of ureter (principal); E66.9 Obesity, unspecified; Z68.30 Body mass index [BMI] 30.0-30.9, adult; J44.9 Chronic obstructive pulmonary disease, unspecified; I10 Essential (primary) hypertension
CPT/HCPCS: 52356; 82365; C1758; C2617; J7120; Q9966

== ENCOUNTER 2024-05-27 19:01 | Emergency (ER) | payer MEDICARE, OTHER ==
[2024-05-27 19:25] VITALS: BP 145/81; O2SAT 95
[2024-05-27 19:37] LABS: BASOPHILS # (AUTO) 0.1 10^3/uL (0.0-0.1); BASOPHILS % (AUTO) 0.5 %; HCT - HEMATOCRIT 41.3 % (42.0-52.0); HGB - HEMOGLOBIN 13.7 g/dL (14.0-18.0); LYMPHOCYTES # (AUTO) 0.9 10^3/uL (1.5-3.5); LYMPHOCYTES % (AUTO) 5.8 %; MEAN CORPUSCULAR HEMOGLOBIN 28.8 pg (27.0-31.0); MEAN CORPUSCULAR HGB CONC 33.2 g/dL (32.0-36.0); MEAN CORPUSCULAR VOLUME 86.9 fL (80.0-94.0); MEAN PLATELET VOLUME 9.2 fL (7.4-11.4); MONOCYTES # (AUTO) 0.8 10^3/uL (0.0-1.0); MONOCYTES % (AUTO) 5.3 %; NEUTROPHILS # (AUTO) 13.6 10^3/uL (1.5-6.6); NEUTROPHILS % (AUTO) 88.1 %; PLT - PLATELET COUNT 283 10^3/uL (130-450); RED BLOOD COUNT 4.75 10^6/uL (4.70-6.10); RED CELL DISTRIBUTION WIDTH 13.4 % (12.0-15.0); WHITE BLOOD COUNT 15.4 x10^3/uL (4.8-10.8)
--- NOTE | 2024-05-27 19:45 | ED Physician Documentation ---
History of Present Illness - Stated complaint Stated Complaint: FEVER - Chief complaint Chief Complaint: General - Additonal information Additional information: 84-year-old male with history of hypertension, hypercholesterolemia, COPD, asthma, COPD, diverticulitis, hemorrhoids, kidney stones presents emergency department for concerns of fevers chills and bodyaches. Patient states that he had a stent placed for kidney stone about a week ago and was supposed to remove it last Monday but states that unfortunately somehow the string broke off and he was unable to get the entire ureter stretched out. Patient has been experiencing increased fevers up to 103 F and chills with generalized malaise. Says that he has been having continuous leaking of urine which is new for him as well as ongoing incontinence. PD PAST MEDICAL HISTORY - Past Medical History Past Medical History: Yes Cardiovascular: Hypertension, High cholesterol Respiratory: Asthma, COPD, Sleep apnea Endocrine/Autoimmune: None GI: GERD, Hemorrhoids, Diverticulitis : Nocturia, Kidney stones HEENT: None Psych: None Musculoskeletal: Osteoarthritis Derm: None - Past Surgical History Past Surgical History: Yes General: Cholecystectomy, Bowel surgery, Colonoscopy, Other Cardiovascular: Other HEENT: Cataracts - Present Medications Home Medications: Ambulatory Orders Medication Instructions Recorded Confirmed Aspirin [Aspirin EC] 81 mg PO DAILY #30 tablet. 08/28/20 05/16/24 Atorvastatin [Lipitor] 40 mg PO DAILY 08/28/20 05/16/24 Losartan [Cozaar] 12.5 mg PO BID 08/28/20 05/16/24 HYDROcod/ACETAM 5/325 [[place] 5/325] 1 - 2 tab PO Q6H PRN #15 tablet 05/10/24 05/20/24 Albuterol Sulf [Ventolin Hfa 1 - 2 puffs INH Q4HR PRN 05/16/24 05/16/24 Inhaler] Amlodipine Besylate [Norvasc] 2.5 mg PO BID 05/16/24 05/16/24 Budesonide/Formoterol Fumarate 2 puffs IH BID 05/16/24 05/16/24 [Symbicort 80-4.5 Mcg Inhaler] Cholecalciferol (Vitamin D3) 5,000 unit PO DAILY 05/16/24 05/16/24 [Vitamin D3] Cyanocobalamin (Vitamin B-12) 1,000 mcg PO DAILY 05/16/24 05/16/24 [Vitamin B-12] Docusate Sodium [Stool Softener] 250 mg PO DAILY 05/16/24 05/16/24 Montelukast [Singulair] 10 mg PO QPM PRN 05/16/24 05/16/24 Multivitamin 1 each PO DAILY 05/16/24 05/16/24 Omeprazole 20 mg PO DAILY 05/16/24 05/16/24 Tamsulosin [Flomax] 0.4 mg PO DAILY 05/16/24 05/16/24 traMADol [Ultram] 50 mg PO DAILY PRN 05/16/24 05/16/24 Docusate Sodium 100Mg Capsule 100 mg PO DAILY #14 cap 05/20/24 [Colace 100Mg Capsule] traMADol [Ultram] 50 mg PO BID PRN #10 tablet 05/20/24 Sulfamethox/Trimeth 800/160 1 tablet PO BID 5 Days #10 tablet 05/27/24 [Bactrim Ds] - Allergies Allergies/Adverse Reactions: Allergies Allergy/AdvReac Type Severity Reaction Status Date / Time No Known Drug Allergies Allergy Verified 05/27/24 19:15 - Social History Does the pt smoke?: No Smoking Status: Never smoker Does the pt drink ETOH?: No Does the pt have substance abuse?: No - Immunizations Immunizations are current?: Yes PD ED PE NORMAL - Vitals Vital signs reviewed: Yes - General General: Alert and oriented X 3, No acute distress, Well developed/nourished - Abdomen Abdomen: Soft, Other (suprapubic tenderness) - Derm Derm: Normal color, Warm and dry, No rash - Psych Psych: Normal mood PD ED PE EXPANDED - Male Male : Normal Exam, Tenderness, Other (no string visualized coming from penis, continuous oozing of urine) Results - Vitals Vitals: Vital Signs - 24 hr 05/27/24 19:15 Temperature 36.7 C Heart Rate 80 Respiratory 18 Rate Blood Pressure 145/81 H O2 Saturation 95 Oxygen O2 Source Room air - Labs Labs: Laboratory Tests 05/27/24 05/27/24 05/27/24 19:19 19:19 19:19 WBC 15.4 H RBC 4.75 Hgb 13.7 L Hct 41.3 L MCV 86.9 MCH 28.8 MCHC 33.2 RDW 13.4 Plt Count 283 MPV 9.2 Neut # (Auto) 13.6 H Lymph # (Auto) 0.9 L Stokes # (Auto) 0.8 Eos # (Auto) 0.0 Baso # (Auto) 0.1 Absolute Nucleated RBC 0.00 Nucleated RBC % 0.0 Sodium 137 Potassium 3.6 Chloride 104 Carbon Dioxide 23 Anion Gap 10.0 BUN 20 Creatinine 1.0 Estimated GFR (MDRD) 71 L Glucose 141 H Lactic Acid 0.9 Calcium 9.3 Magnesium 1.4 L Total Bilirubin 0.8 AST 18 ALT 17 Alkaline Phosphatase 90 Total Protein 6.6 Albumin 3.9 Globulin 2.7 Albumin/Globulin Ratio 1.4 Lipase < 10 L Urine Color Urine Clarity Urine pH Ur Specific Beeler Urine Protein Urine Glucose (UA) Urine Ketones Urine Occult Blood Urine Nitrite Urine Bilirubin Urine Urobilinogen Ur Leukocyte Esterase Urine RBC Urine WBC Urine WBC Clumps Ur Epithelial Cells Ur Squamous Epith Cells Urine Bacteria Urine Mucus Ur Microscopic Review Urine Culture Comments Nasal Adenovirus (PCR) Nasal B. parapertussis DNA (PCR) Nasal Coronavir 229E PCR Nasal Coronavir HKU1 PCR Nasal Coronavir NL63 PCR Nasal Coronavir OC43 PCR Nasal Enterovir/Rhinovir PCR Nasal Influenza B PCR Nasal Influenza A PCR Nasal Parainfluen 1 PCR Nasal Parainfluen 2 PCR Nasal Parainfluen 3 PCR Nasal Parainfluen 4 PCR Nasal RSV (PCR) Nasal B.pertussis DNA PCR Nasal C.pneumoniae (PCR) [place] Human Metapneumo PCR Nasal M.pneumoniae (PCR) Nasal SARS-CoV-2 (PCR) 05/27/24 05/27/24 19:40 19:40 WBC RBC Hgb Hct MCV MCH MCHC RDW Plt Count MPV Neut # (Auto) Lymph # (Auto) Stokes # (Auto) Eos # (Auto) Baso # (Auto) Absolute Nucleated RBC Nucleated RBC % Sodium Potassium Chloride Carbon Dioxide Anion Gap BUN Creatinine Estimated GFR (MDRD) Glucose Lactic Acid Calcium Magnesium Total Bilirubin AST ALT Alkaline Phosphatase Total Protein Albumin Globulin Albumin/Globulin Ratio Lipase Urine Color DARK YELLOW Urine Clarity CLOUDY Urine pH 6.0 Ur Specific [place] 1.025 Urine Protein 100 H Urine Glucose (UA) NEGATIVE Urine Ketones TRACE Urine Occult Blood MODERATE H Urine Nitrite POSITIVE H Urine Bilirubin SMALL H Urine Urobilinogen 0.2 (NORMAL) Ur Leukocyte Esterase MODERATE H Urine RBC 0-5 Urine WBC >25 H Urine WBC Clumps PRESENT Ur Epithelial Cells RARE Renal Tubular Ur Squamous Epith Cells FEW Squamous Urine Bacteria Moderate H Urine Mucus Few Strands Ur Microscopic Review INDICATED Urine Culture Comments INDICATED Nasal Adenovirus (PCR) NOT DETECTED Nasal B. parapertussis DNA (PCR) NOT DETECTED Nasal Coronavir 229E PCR NOT DETECTED Nasal Coronavir HKU1 PCR NOT DETECTED Nasal Coronavir NL63 PCR NOT DETECTED Nasal Coronavir OC43 PCR NOT DETECTED Nasal Enterovir/Rhinovir PCR NOT DETECTED Nasal Influenza B PCR NOT DETECTED Nasal Influenza A PCR NOT DETECTED Nasal Parainfluen 1 PCR NOT DETECTED Nasal Parainfluen 2 PCR NOT DETECTED Nasal Parainfluen 3 PCR NOT DETECTED Nasal Parainfluen 4 PCR NOT DETECTED Nasal RSV (PCR) NOT DETECTED Nasal B.pertussis DNA PCR NOT DETECTED Nasal C.pneumoniae (PCR) NOT DETECTED [place] Human Metapneumo PCR NOT DETECTED Nasal M.pneumoniae (PCR) NOT DETECTED Nasal SARS-CoV-2 (PCR) NOT DETECTED - Rads (name of study) CT KUB Relevant Findings:: Final report received, EMP independent interpretation of test, Other (Retained left ureteral stone with proximal and located in the mid left ureter and distal end in the penile urethra diffuse bladder wall thickening prostatomegaly chronic diverticulosis) PD Medical Decision Making - ED course ED course: 84-year-old male presents emergency department for concerns of fevers up to 103 F and retained ureteral stent. CT KUB was complete for further evaluation which revealed a retained left ureteral stent with proximal and located in the mid left ureter and distal end in the penile urethra. He also was found to have diffuse bladder wall thickening which is most likely due to cystitis. Left periureteral and peripelvic fat stranding most likely due to recent [place] instrumentation versus ascending infection, prostatomegaly, colonic diverticulosis Urinalysis complete for further evaluation which revealed involving leukocytes and nitrites and bacteria. Patient also has a leukocytosis white count 15.4, normal kidney function GFR 71 creatinine 1.0. Mild hypomagnesemia 1.4. I spoke with patient's urologist Dr. Rosado who said that he would be following up with the patient outpatient to have that stent removed within the next couple days. Patient was started on Bactrim per the recommendation of Dr. Rosado and this prescription has been sent to his preferred pharmacy. Return precautions given patient is safe for discharge at this time. Departure - Departure Disposition: 01 Home, Self Care Clinical Impression: UTI (urinary tract infection), Retained ureteral stent Instructions: Sulfamethoxazole Trimethoprim [id number] tablets Prescriptions: Sulfamethox/Trimeth 800/160 [Bactrim Ds] 1 tablet PO BID 5 Days #10 tablet Comments: Thank you for trusting us with your care. It does appear that your ureteral stent is retained Dr. Rosado's office will be calling you tomorrow to make an appointment to have the stent removed. We have started you on antibiotic called Bactrim here in the emergency department you will take this twice a day for at least the next [address] Rosado extends it. Keep in mind that there is sometimes side effects of taking Bactrim and losartan together so I would recommend having your labs reevaluated in about 4 to 5 days. Please come back to the ER if you are having any worsening fevers or chills chest pain, nausea vomiting, shortness of breath, or any other concerning emergent symptoms. Forms: PCP List Discharge Date/Time: 05/27/24 20:53
[2024-05-27 19:52] LABS: ALBUMIN 3.9 g/dL (3.2-5.5); ALBUMIN/GLOBULIN RATIO 1.4 (1.0-2.2); ALKALINE PHOSPHATASE 90 IU/L (42-121); ALT ALANINE AMINOTRANSFERASE 17 IU/L (10-60); AST ASPARTATE AMINOTRANSFERASE 18 IU/L (10-42); BILIRUBIN,TOTAL 0.8 mg/dL (0.2-1.0); BUN - BLOOD UREA NITROGEN 20 mg/dL (6-20); CALCIUM 9.3 mg/dL (8.5-10.3); CARBON DIOXIDE - CO2 23 mmol/L (21-32); CHLORIDE 104 mmol/L (101-111); GFR - MDRD 71 (>89); GLUCOSE 141 mg/dL (74-104); LIPASE < 10 U/L (11-82); MAGNESIUM 1.4 mg/dL (1.7-2.3); POTASSIUM 3.6 mmol/L (3.5-4.5); SODIUM 137 mmol/L (135-145); TOTAL PROTEIN 6.6 g/dL (6.4-8.9)
[2024-05-27 20:07] LABS: BILIRUBIN,URINE SMALL (NEGATIVE); GLUCOSE, URINE (UA) NEGATIVE (NEGATIVE); KETONES,URINE (UA) TRACE mg/dL (NEGATIVE); LEUKOCYTE ESTERASE, URINE MODERATE (NEGATIVE); NITRITE,URINE POSITIVE (NEGATIVE); OCCULT BLOOD,URINE MODERATE (NEGATIVE); PROTEIN,URINE 100 mg/dL (NEGATIVE); UROBILINOGEN,URINE 0.2 (NORMAL) E.U./dL (NORMAL)
--- NOTE | 2024-05-27 20:07 | CT Report ---
PROCEDURE: KUB INDICATIONS: possible retained stent TECHNIQUE: A CT scan of the abdomen and pelvis was performed without the use of intravenous contrast. Images we re recorded and evaluated at appropriate window settings. Reformats: coronal and sagittal. For radiat ion dose reduction, the following was used: automated exposure control, adjustment of mA and/or kV ac cording to patient size. COMPARISON: CT abdomen/pelvis 05/10/2024. FINDINGS: Image quality: Diagnostic. Lower chest: Unremarkable. Liver: No contour-deforming mass. Gallbladder: Status post cholecystectomy. Biliary tree: No intrahepatic or extrahepatic dilation, accounting for age. Spleen: No splenomegaly. Pancreas: No pancreatic ductal dilation. Adrenals: No adrenal nodule. Kidneys and ureters: No hydronephrosis. No contour-deforming mass. Linear nonobstructing calculus of the inferior pole of the right kidney. Renal cysts, greater on the left than on the right. A ureteral stent is seen with proximal pigtail and located within the left mid ureter and distal pigtail loop w ithin the penile urethra. Previously seen left ureteral calculus is no longer visualized. No hydronep hrosis. Mild left ureteral and bilateral perinephric fat stranding. Stomach, bowel and peritoneum: Postsurgical changes are seen at the rectosigmoid junction. Multiple c olonic diverticula are seen without signs of acute diverticulitis. Small bowel loops and stomach are unremarkable. No pathologic free fluid. Lymph nodes: No central or retroperitoneal adenopathy. Vessels: No infrarenal aortic aneurysm. Aortic and vascular calcifications. Reproductive organs: Prostate is enlarged and contains coarse calcifications. Bladder: Bladder is nondistended. Bilateral thickening is seen that may be related to chronic outlet obstruction or cystitis. Pelvic lymph nodes: No adenopathy by size criteria. Bones: No aggressive osseous abnormality. Other: Small fat-containing right inguinal hernia. IMPRESSION: 1.Retained left ureteral stent with proximal end located in the mid left ureter and distal end in the penile urethra. 2.Diffuse bladder wall thickening may be related to chronic outlet obstruction or cystitis. Recommend correlation with urinalysis. 3.Left periureteral and peripelvic fat stranding may be related to recent calculus/instrumentation ve rsus ascending infection. 4.Prostamegaly. 5.Colonic diverticulosis. Findings were discussed with the referring provider, Kong MONTEJO, by telephone on 05/27/2024 at 8:04 PM. Reviewed by: Ruben Villalta MD on 05/27/2024 8:06 PM PDT Approved by: Ruben Villalta MD on 05/27/2024 8:06 PM PDT Station ID: [id number]
[2024-05-27 20:19] LABS: CLARITY,URINE CLOUDY (CLEAR)
[2024-05-27 20:23] LABS: RBC,URINE 0-5 /HPF (0-5); WBC,URINE >25 /HPF (0-3)
[2024-05-27 20:24] LABS: BACTERIA,URINE Moderate /HPF (None Seen); EPITHELIAL CELLS,UR RARE Renal Tubular /HPF (<= Few); MUCUS,URINE Few Strands; SQUAMOUS EPITHELIAL CELL,UR FEW Squamous (<= Few); WBC CLUMPS,URINE PRESENT
[2024-05-27] MEDS: SULFAMETH/TRIMETH DS 800/160 MG TABLET PO STA (20:43)
[2024-05-27 21:00] LABS: B. PARAPERTUSSIS- RESP PCR PAN NOT DETECTED; B. PERTUSSIS- RESP PCR PANEL NOT DETECTED; C. PNEUMONIAE- RESP PCR PANEL NOT DETECTED; CORONAVIRUS 229E-RESP PCR NOT DETECTED; CORONAVIRUS HKU1-RESP PCR NOT DETECTED; CORONAVIRUS NL63-RESP PCR NOT DETECTED; CORONAVIRUS OC43-RESP PCR NOT DETECTED; HUMAN METAPNEUMOVIRUS NOT DETECTED; INFLUENZA A- RESP PCR PANEL NOT DETECTED; INFLUENZA B - RESP PCR PANEL NOT DETECTED; M. PNEUMONIAE- RESP PCR PANEL NOT DETECTED; PARAINFLUENZA VIRUS 1 NOT DETECTED; PARAINFLUENZA VIRUS 2 NOT DETECTED; PARAINFLUENZA VIRUS 3 NOT DETECTED; PARAINFLUENZA VIRUS 4 NOT DETECTED; RHINOVIRUS/ENTEROVIRUS NOT DETECTED; RSV- RESP PCR PANEL NOT DETECTED; SARS-CoV-2 -RESP PCR PANEL NOT DETECTED
== END 2024-05-27 20:53 | disposition home or self-care (01) ==
LOC: ED 19:01
DX: N39.0 Urinary tract infection, site not specified (principal); I10 Essential (primary) hypertension; E78.00 Pure hypercholesterolemia, unspecified; J44.9 Chronic obstructive pulmonary disease, unspecified; Z87.19 Personal history of other diseases of the digestive system; Z87.442 Personal history of urinary calculi; Z79.82 Long term (current) use of aspirin; Z79.899 Other long term (current) drug therapy
CPT/HCPCS: 36415; 74176; 80053; 81001; 83605; 83690; 83735; 85025; 87040; 87086; 87633; 99284; A9270; 81003; 87077; 87181